=== PATIENT | female | born 1995 ===

== ENCOUNTER 2018-10-16 08:18 | Observation (INO) | payer SELFPAY ==
[2018-10-16] MEDS ORDERED: Methylergonovine 0.2 MG/1 ML Amp IM PRN (09:14)
[2018-10-16] MEDS ORDERED: Sodium Chloride 0.9% 2.5 ML Syringe FLUSH PRN (09:14)
[2018-10-16] MEDS ORDERED: Misoprostol 200 MCG Tab PO PRN (09:14)
[2018-10-16] MEDS ORDERED: Nalbuphine 10 MG/1 ML Vial IVPUSH PRN (09:14)
[2018-10-16] MEDS ORDERED: Water For Irrigation,Sterile 1,000 ML Container IRR PRN (09:14)
[2018-10-16] MEDS ORDERED: Lidocaine 1% 50 ML MDV INJECT PRN (09:14)
[2018-10-16] MEDS ORDERED: Butorphanol 1 MG/ML SDV IVPUSH PRN (09:14)
[2018-10-16] MEDS ORDERED: Carboprost Tromethamine 250 MCG/1 ML Amp IM PRN (09:14)
[2018-10-16] MEDS ORDERED: Sodium Chloride 0.9% 10 ML SDV IV PRN (09:14)
[2018-10-16] MEDS ORDERED: Tranexamic Acid 1,000 MG in Sodium Chloride 0.9% 100 ML IV PRN (09:14)
[2018-10-16] MEDS ORDERED: Sodium Chloride 0.9% 10 ML Syringe FLUSH PRN (09:14)
[2018-10-16] MEDS ORDERED: Ondansetron 4 MG/2 ML SDV IV PRN (09:14)
[2018-10-16] MEDS ORDERED: Misoprostol 50 MCG (1/2 of 100 MCG) Tab VAG SCH (09:15)
[2018-10-16] MEDS ORDERED: Lactated Ringers 1,000 ML IV SCH (09:15)
[2018-10-16] MEDS ORDERED: Oxytocin/0.9 % Sodium Chloride 30 UNIT/500 ML BAG IV SCH (09:15)
[2018-10-16] MEDS: Misoprostol 200 MCG Tab VAG SCH ×2 (10:25→14:21)
[2018-10-16] MEDS ORDERED: Acetaminophen 500 MG Tab PO PRN ×3 (10:55→18:54)
[2018-10-16] MEDS ORDERED: Ketorolac 15 MG/ML SDV IVPUSH STA (18:26)
[2018-10-16] MEDS ORDERED: Lanolin 100% Cream 7 GM Tube TOP PRN (18:54)
[2018-10-16] MEDS ORDERED: Docusate Sodium 100 MG Cap PO PRN (18:54)
[2018-10-16] MEDS ORDERED: Ibuprofen 400 MG Tab PO PRN (18:54)
[2018-10-16] MEDS ORDERED: Ibuprofen 800 MG Tab PO PRN (18:54)
[2018-10-16] MEDS ORDERED: Benzocaine/Menthol 20%-0.5% Spray 78 GM Cannister TOP PRN (18:54)
[2018-10-16] MEDS ORDERED: Witch Hazel Medicated Pads 40/Jar TOP PRN (18:54)
[2018-10-16] MEDS ORDERED: Bisacodyl 10 MG Supp RECTAL PRN (18:54)
[2018-10-16] MEDS ORDERED: oxyCODONE 5 MG Tab PO PRN (18:54)
--- NOTE | 2018-10-16 19:51 | US ---
INDICATION: Check for retained products. TECHNIQUE: Transabdominal imaging. COMPARISON: None. IMPRESSION: There is relative uniform thickening of the endometrium versus heterogeneous fluid within the uterine cavity (i.e. blood products), which measures up to 3 cm. On color Doppler imaging, this does not appear to be particularly hypervascular to suggest retained products of conception. Consider imaging followup. Dictated by Mike Azevedo MD @ 10/16/2018 7:48:28 PM Dictated by: Mike Azevedo MD @ 10/16/2018 19:49:06 (Electronically Signed)
[2018-10-16] MEDS ORDERED: Misoprostol 200 MCG Tab PO SCH (21:00)
--- NOTE | 2018-10-17 09:11 | PCM.PNPP ---
- General Info Date of Service: 10/17/18 Functional Status: Reports: Pain Controlled, Tolerating Diet, Ambulating, Urinating - Review of Systems General: Denies: Fever, Weakness Pulmonary: Denies: Shortness of Breath Cardiovascular: Denies: Chest Pain, Palpitations, Lightheadedness Gastrointestinal: Denies: Abdominal Pain, Nausea, Vomiting Genitourinary: Denies: Flank Pain Musculoskeletal: Reports: No Symptoms Skin: Reports: No Symptoms Neurological: Reports: No Symptoms Psychiatric: Reports: No Symptoms - General Info Date of Service: 10/17/18 - Patient Data Vital Signs - Most Recent: Last Vital Signs Temp 36.3 C 10/17/18 08:10 Pulse 73 10/17/18 08:10 Resp 12 10/17/18 08:10 BP 97/55 L 10/17/18 08:10 Pulse Ox 99 10/17/18 08:10 Weight - Most Recent: 69.853 kg Lab Results - Last 24 Hours: Laboratory Results - last 24 hr 10/16/18 10/16/18 10/17/18 Range/Units 09:36 09:36 05:23 WBC 10.87 (4.0-11.0) K/uL RBC 3.65 L (4.30-5.90) M/uL Hgb 11.1 L 10.1 L (12.0-16.0) g/dL Hct 32.5 L 29.7 L (36.0-46.0) % MCV 89.0 (80.0-98.0) fL MCH 30.4 (27.0-32.0) pg MCHC 34.2 (31.0-37.0) g/dL RDW Std Deviation 40.3 (28.0-62.0) fl RDW Coeff of Dania 13 (11.0-15.0) % Plt Count 210 (150-400) K/uL MPV 10.40 (7.40-12.00) fL Neut % (Auto) 75.4 (48.0-80.0) % Lymph % (Auto) 19.0 (16.0-40.0) % [place] % (Auto) 4.9 (0.0-15.0) % Eos % (Auto) 0.6 (0.0-7.0) % Baso % (Auto) 0.1 (0.0-1.5) % Neut # (Auto) 8.2 H (1.4-5.7) K/uL Lymph # (Auto) 2.1 (0.6-2.4) K/uL Treg[place] # (Auto) 0.5 (0.0-0.8) K/uL Eos # (Auto) 0.1 (0.0-0.7) K/uL Baso # (Auto) 0.0 (0.0-0.1) K/uL Nucleated RBC % 0.0 /100WBC Nucleated RBCs # 0 K/uL Blood Type O POSITIVE Antibody Screen NEGATIVE Med Orders - Current: Current Medications Acetaminophen (Tylenol Extra Strength) 500 mg PO Q4H PRN PRN Reason: Pain Acetaminophen (Tylenol Extra Strength) 1,000 mg PO Q4H PRN PRN Reason: Pain Last Admin: 10/17/18 02:43 Dose: 1,000 mg Benzocaine/Menthol (Dermoplast Pain Relief 20%-0.5% [place]) 78 gm TOP ASDIRECTED PRN PRN Reason: Perineal Comfort Measure Bisacodyl (Dulcolax) 10 mg RECTAL ONETIME PRN PRN Reason: Constipation Docusate Sodium (Colace) 100 mg PO BID PRN PRN Reason: Constipation Emollient Ointment (Lansinoh Hpa) 0 gm TOP ASDIRECTED PRN PRN Reason: Sore Nipples Ibuprofen (Motrin) 400 mg PO Q4H PRN PRN Reason: Pain Last Admin: 10/17/18 02:42 Dose: 400 mg Ibuprofen (Motrin) 800 mg PO Q6H PRN PRN Reason: Pain Oxycodone HCl (Oxycodone) 5 mg PO Q2H PRN PRN Reason: Pain Witch Pearl (Tucks) 1 pad TOP ASDIRECTED PRN PRN Reason: comfort care Discontinued Medications Acetaminophen (Tylenol Extra Strength) 1,000 mg PO Q6H PRN PRN Reason: Headache Last Admin: 10/16/18 11:12 Dose: 1,000 mg Butorphanol Tartrate (Stadol) 1 mg IVPUSH Q1H PRN PRN Reason: Pain Last Admin: 10/16/18 14:21 Dose: 1 mg Carboprost Tromethamine (Hemabate Ds) 250 mcg IM ASDIRECTED PRN PRN Reason: Post Hemorrhage Lactated Ringer's (Ringers, Lactated) 1,000 mls @ 150 mls/hr IV ASDIRECTED [facility] Oxytocin/Sodium Chloride (Oxytocin 30 Unit/500 Ml-Ns) 30 unit in 500 mls @ 999 mls/hr IV TITRATE [facility] Last Admin: 10/16/18 17:55 Dose: 999 mls/hr Tranexamic Acid 1,000 mg/ (Sodium Chloride) 110 mls @ 660 mls/hr IV ONETIME PRN PRN Reason: Bleeding Ketorolac Tromethamine (Toradol) 15 mg IVPUSH NOW STA Stop: 10/16/18 18:27 Last Admin: 10/16/18 18:52 Dose: 15 mg Lidocaine HCl (Xylocaine 1%) 50 ml INJECT ONETIME PRN PRN Reason: Laceration repair Methylergonovine Maleate (Methergine) 0.2 mg IM ASDIRECTED PRN PRN Reason: Post Hemorrhage Misoprostol (Cytotec) 200 mcg PO BID [facility] Misoprostol (Cytotec) 600 mcg VAG Q4H [facility] Last Admin: 10/16/18 14:21 Dose: 600 mcg Nalbuphine HCl (Nubain) 10 mg IVPUSH Q1H PRN PRN Reason: Pain (severe 7-10) Last Admin: 10/16/18 16:17 Dose: 10 mg Ondansetron HCl (Zofran) 4 mg IV Q6H PRN PRN Reason: Nausea/Vomiting Amoxicillin 500 Mg 1 each PO Q8H [facility] Last Admin: 10/16/18 14:21 Dose: 1 each Sodium Chloride (Saline Flush) 10 ml FLUSH ASDIRECTED PRN PRN Reason: Keep Vein Open Sodium Chloride (Saline Flush) 2.5 ml FLUSH ASDIRECTED PRN PRN Reason: Keep Vein Open Sodium Chloride (Normal Saline) 10 ml IV ASDIRECTED PRN PRN Reason: IV Use Sterile Water (Sterile Water For Irrigation) 1,000 ml IRR ASDIRECTED PRN PRN Reason: delivery - Infant Interaction Support Person: Significant Other - Recovery Exam Fundal Tone: Firm Fundal Level: 3 Fingerbreadths Below Umbilicus Fundal Placement: Midline Lochia Amount: Scant Lochia Color: Rubra/Red Perineum Description: Intact, Minimal Bruising/Swelling Episiotomy/Laceration: None Bladder Status: Voiding Urinary Elimination: Voided - Exam General: Alert, Oriented Lungs: Normal Respiratory Effort Cardiovascular: Regular Rate, Regular Rhythm GI/Abdominal Exam: Normal Bowel Sounds, Soft Extremities: Pedal Edema (trace). No: Rafael's Sign Skin: Warm, Dry, Intact Neurological: No New Focal Deficit Psy/Mental Status: Alert, Normal Affect - Problem List & Annotations (1) premature rupture of membranes (PPROM) delivered, current hospitalization SNOMED Code(s): 418605969, 371564612 Code(s): O42.919 - PRETRM SAM ROM, UNSP TIME BETW RUPT AND ONST LABR, UNSP TRI Status: Acute Current Visit: Yes - Problem List Review Problem List Initiated/Reviewed/Updated: Yes - My Orders Last 24 Hours: My Active Orders 10/16/18 09:14 May Shower [RC] ASDIRECTED Up ad Radha [RC] ASDIRECTED Vital Signs [RC] PER UNIT ROUTINE 10/17/18 09:07 Ready for Discharge [RC] PER UNIT ROUTINE - Assessment Assessment:: PPD 1 status post delivery 16 week demise Augmentation due to PPPROM - Plan Plan:: Patient and family are doing well this morning, feel they have peace and relief. Will notify them of genetic testing. [facility] home has attended to baby for cremation. Margaret is ready to go home. Discharge instructions reviewed. Follow up at [facility] 2 weeks. Infection and bleeding warnings reviewed.
== END 2018-10-17 10:17 | disposition home or self-care (01) ==
LOC: MW.OBCHECK 08:18 → MW.OB 08:37
PROVIDERS: ADMIT Obstetrics & Gynecology; ATTEND Obstetrics & Gynecology
DX: O36.4XX0 Maternal care for intrauterine death, not applicable or unspecified (principal); O42.912 Preterm premature rupture of membranes, unspecified as to length of time between rupture and onset of labor, second trimester; O98.812 Other maternal infectious and parasitic diseases complicating pregnancy, second trimester; B37.3 Candidiasis of vulva and vagina; O99.332 Smoking (tobacco) complicating pregnancy, second trimester; F17.210 Nicotine dependence, cigarettes, uncomplicated; Z3A.16 16 weeks gestation of pregnancy; Z37.1 Single stillbirth
CPT/HCPCS: 36415; 59409; 76857; 85014; 85018; 85025; 86850; 86900; 86901; 88233; A9270; J0595; J1885; J2300; J2590; 88305; 96374; 96375; G0378